=== PATIENT | female | born 1965 | race Caucasian/White ===

== ENCOUNTER → 2018-09-25 13:57 | Outpatient (CLI) | payer MEDICARE ==
[2015-11-29 07:38] VITALS: BMI 33.9
[~2018-09-25 13:57] MED LIST: DIOVAN80 MG PO; PRAVASTATIN SOD10 MG PO
[2018-09-25 14:33] LABS: BASOPHILS 0.3 % (0-2); EOSINOPHILS 0.8 % (0-7); HEMATOCRIT 42.4 % (36.0-48.0); HEMOGLOBIN 15.4 g/dL (12-16); IMMATURE GRANULOCYTES 0.3 % (0-5); MCH 30.9 pg (26.0-34.0); MCHC 36.3 g/dL (31.0-37.0); MCV 85.1 fL (80.0-100.0); MEAN PLATELET VOLUME 11.5 fL (7.4-10.4); MONOCYTES 6.1 % (2-11); NEUTROPHILS 72.5 % (40-80); PLATELET COUNT 173 10x3/uL (130-400); RBC 4.98 10x6/uL (4.00-5.40); RDW 12.9 % (11.5-14.5); WBC 6.3 10x3/uL (4.8-10.8)
[2018-09-25 14:58] LABS: ALBUMIN 4.3 g/dL (3.4-5.0); ANION GAP 15.9 mmol/L (8-16); BILIRUBIN - TOTAL 0.86 mg/dL (0.2-1.3); CALCIUM 9.4 mg/dL (8.5-10.1); CARBON DIOXIDE 24.6 mmol/L (21.0-32.0); CHOL - HDL RATIO 3.3 ratio (2.3-4.1); CREATININE - SERUM 0.9 mg/dL (0.6-1.3); POTASSIUM - SERUM 3.5 mmol/L (3.5-5.1); PROTEIN - SERUM 8.8 g/dL (6.4-8.2); THYROID STIMULATING HORMONE 2.36 uIU/mL (0.36-3.74)
== END | disposition home or self-care (01) ==
LOC: D.LAB 13:57
PROVIDERS: Family Medicine
DX: E78.5 Hyperlipidemia, unspecified (principal); I10 Essential (primary) hypertension